=== PATIENT | male | born 1960 | race Caucasian/White ===

== ENCOUNTER → 2017-09-06 | Day surgery (SDC) | payer BC ==
[~2017-09-06] MED LIST: ALBUTEROL0.63 MG/3 INH; FENTANYL CITRATE/PF 100MCG/2 ML INJ ONE; GABAPENTIN300 MG PO; LABETALOL HCL IV 5 MG/ML 20ML MDV ONE; LIDOCAINE HCL 2% LOCAL INJ 5 ML SDV VIAL INJ ONE; MIDAZOLAM HCL 2 MG/2 ML VIAL ONE; PROAIR HFA INH8.5 GM INH; PROPOFOL IV EMULSION 10 MG/ML 50 ML VIAL ONE; PROTONIX PO; SINGULAIR10 MG PO; SYMBICORT 80-10.2 GM; Z.0.ADVAIR 250-501 E; ZYRTEC10 MG PO
--- NOTE | 2017-09-06 14:28 | Operative Report ---
DATE OF PROCEDURE: September 06, 2017 REFERRING PHYSICIAN: Dr. Heather Onofre PROCEDURE PERFORMED: Colonoscopy and polypectomy. INDICATIONS FOR COLONOSCOPY: Colorectal cancer screening, suboptimal prep on previous colonoscopy. MEDICATION: Patient was done under MAC. Please see anesthesiologist's note. PROCEDURE: With the patient in the left lateral decubitus position, the flexible fiberoptic Olympus colonoscope was inserted into the rectum with ease and advanced all the way to the cecum. One polyp was snared from the cecum. An additional polyp, approximately 1.2 cm in size, sessile, flat, was removed per snare polypectomy. The ascending colon appeared to be within normal limits. One polyp was hot biopsied from the hepatic flexure, and two polyps were hot biopsied from the transverse colon. One polyp was hot biopsied from the descending colon. Five polyps were hot biopsied and 2 polyps were snared from the sigmoid colon. Diverticular disease was noted to involve the sigmoid colon. The rectum appeared to be within normal limits. The scope was then retroflexed into the distal rectum, and small internal hemorrhoids were noted, none of which was actively bleeding. The scope was then straightened out. The rectosigmoid area as well as the distal rectal area were decompressed. The scope was subsequently withdrawn. Patient tolerated the procedure well. IMPRESSION 1. Cecal polyps times 2, snared. 2. Hepatic flexure polyp, hot biopsied times 1. 3. Transverse colon polyps times 2, hot biopsied. 4. Descending colon polyp times 1, hot biopsied. 5. Sigmoid colon polyps times 7, two snared and five hot biopsied. 6. Diverticulosis. 7. Internal hemorrhoids, none actively bleeding. PLAN: Follow up histology. Initiate high-fiber, low-fat diet. Initiate high-fiber supplement. Patient will need a followup colonoscopy in 1 year. Job#: [id number] cc:HEATHER ONOFRE MD
== END | disposition home or self-care (01) ==
LOC: OR 10:26
PROVIDERS: ATTEND Internal Medicine Gastroenterology
DX: Z12.11 Encounter for screening for malignant neoplasm of colon (principal); D12.0 Benign neoplasm of cecum; D12.3 Benign neoplasm of transverse colon; D12.5 Benign neoplasm of sigmoid colon; K21.9 Gastro-esophageal reflux disease without esophagitis; J45.909 Unspecified asthma, uncomplicated; G47.33 Obstructive sleep apnea (adult) (pediatric); K57.30 Diverticulosis of large intestine without perforation or abscess without bleeding; K64.8 Other hemorrhoids; Z68.35 Body mass index [BMI] 35.0-35.9, adult; Z80.0 Family history of malignant neoplasm of digestive organs
CPT/HCPCS: 45384; 45385; J2001; J2250; J3490

== ENCOUNTER 2018-10-31 17:42 | Emergency (ER) | payer BC ==
[~2018-10-31] VITALS: Ht 175.3 cm; Wt 104.3 kg
[~2018-10-31 17:42] MED LIST changes: -FENTANYL CITRATE/PF 100MCG/2 ML INJ ONE; -LABETALOL HCL IV 5 MG/ML 20ML MDV ONE; -LIDOCAINE HCL 2% LOCAL INJ 5 ML SDV VIAL INJ ONE; -MIDAZOLAM HCL 2 MG/2 ML VIAL ONE; -PROPOFOL IV EMULSION 10 MG/ML 50 ML VIAL ONE
--- OUTSIDE RECORDS SUMMARY | 2018-10-31 17:47 | XMS REPORT | Summary of Care ---
Author Organization Unknown Address Unknown Phone Unavailable Encounter HQ Gaetanontr_regino(LOPEZ) [id number] Date(s): 06/26/14 - 06/26/14 [facility] [id number] Final: Closed Fracture of One Rib Discharge Disposition: Home Physician Attending: Lazaro Darby MD Reason for Visit XRAY Problem List No data available for this section Allergies, Adverse Reactions, Alerts No data available for this section Medications No data available for this section Medications Administered During Your Visit No data available for this section Immunizations No data available for this section
--- OUTSIDE RECORDS SUMMARY | 2018-10-31 17:47 | XMS REPORT | Summary of Care ---
Author Author [facility] Organization [facility] Address Unknown Phone Unavailable Encounter HQ Belinda(LOPEZ) [id number] Date(s): 04/20/16 - 04/22/16 [facility] [id number] [place] [address]- Discharge Disposition: Home or Self Care Attending Physician: Hilario Barakat MD Admitting Physician: Hilario Barakat MD Vital Signs 1 2 3 Most recent to oldest [Reference Range]: 175.26 cm (04/20/16 8:10 PM) 175.26 cm (04/20/16 8:08 PM) 175.26 cm (04/20/16 8:07 PM) Height 98.0 DegF (04/22/16 12:14 PM) 97.7 DegF (04/22/16 8:15 AM) 98.1 DegF (04/22/16 4:00 AM) Temperature Oral [96.4-99.1 DegF] 138/76 mmHg (04/22/16 12:14 PM) 146/91 mmHg *HI* (04/22/16 8:15 AM) 136/76 mmHg (04/22/16 4:00 AM) Blood Pressure [90-140/60-90 mmHg] 16 BRMIN (04/22/16 12:14 PM) 15 BRMIN (04/22/16 8:28 AM) 16 BRMIN (04/22/16 8:15 AM) Respiratory Rate [14-20 BRMIN] 118 bpm *HI* (04/22/16 12:14 PM) 84 bpm (04/22/16 8:15 AM) 82 bpm (04/22/16 4:00 AM) Peripheral Pulse Rate [60-100 bpm] 95.455 kg (04/20/16 8:10 PM) 95.455 kg (04/20/16 8:08 PM) 95.455 kg (04/20/16 8:07 PM) Weight 31.08 m2 (04/20/16 8:10 PM) 31.08 m2 (04/20/16 8:08 PM) 31.08 m2 (04/20/16 8:07 PM) Body Mass Index Problem List Condition Effective Dates Status Health Status Informant Asthma(Confirmed) Resolved Cough(Confirmed) Resolved Allergies, Adverse Reactions, Alerts Substance Reaction Severity Status penicillins Active Medications azithromycin 500 mg oral tablet 500 mg, 2 tab, Route: PO, Drug form: TAB, [id number], Dosing Weight 95.455, kg, Sta rt date: 04/20/16 21:00:00 CDT, Duration: 3 day, Stop date: 04/22/16 21:00:00 CD T Notes: Take 1 hour before or 2 hours after meals.(Same As: Zithromax) Start Date: 04/20/16 Stop Date: 04/22/16 Status: Discontinued benzonatate 100 mg oral capsule 200 mg=2 cap, PO, TID, # 180 cap, 1 Refill(s) Start Date: 04/22/16 Stop Date: 05/23/16 Status: Ordered codeine-guaiFENesin 10 mg-200 mg/5 mL oral liquid 5 ml, Route: PO, Drug Form: LIQ, Dosing Weight 95.455, kg, Q6H, PRN Cough, Start date: 04/20/16 22:29:00 CDT, Duration: 30 day, Stop date: 05/20/16 22:28:00 CDT Notes: (Same As: Esesin AC) Start Date: 04/20/16 Stop Date: 04/22/16 Status: Discontinued Dulera 100 mcg-5 mcg/inh inhalation aerosol 2 puff, INHALER, BID, # 1 ea, 3 Refill(s) Start Date: 04/21/16 Status: Ordered DuoNeb inhalation solution 3 mL, Route: NEB, Drug Form: SOLN, Dosing Weight 95.455, kg, RQ4H, PRN Cough/Con gestion, Start date: 04/20/16 20:22:00 CDT, Duration: 30 day, Stop date: 6 20:21:00 CDT Notes: (Same as: Duoneb) Start Date: 04/20/16 Stop Date: 04/22/16 Status: Discontinued DuoNeb inhalation solution 3 mL, Route: NEB, Drug Form: SOLN, Dosing Weight 95.455, kg, RQID, Start date: 0 04/21/16 7:00:00 CDT, Duration: 30 day, Stop date: 05/20/16 19:00:00 CDT Notes: (Same as: Duoneb) Start Date: 04/21/16 Stop Date: 04/22/16 Status: Discontinued DuoNeb inhalation solution 3 mL, Route: NEB, Dosing Weight 95.455, kg, QID, Start date: 04/20/16 21:00:00 C DT, Duration: 30 day, Stop date: 05/20/16 17:00:00 CDT Start Date: 04/20/16 Stop Date: 04/20/16 Status: Canceled enoxaparin 40 mg, 0.4 mL, Route: SUB-Q, Drug form: INJ, [id number], Dosing Weight 95.455, kg, Start date: 04/20/16 23:00:00 CDT, Duration: 30 day, Stop date: 05/19/16 23:00: 00 CDT Notes: (Same as: Lovenox) Start Date: 04/20/16 Stop Date: 04/22/16 Status: Discontinued gabapentin 300 mg oral capsule 300 mg=1 cap, PO, Daily, # 90 cap, 0 Refill(s) Start Date: 04/22/16 Status: Ordered lidocaine topical patch (5% film) 1 patch, Route: TOP, Q24H, Drug form: FILM, Start date: 04/21/16 14:21:00 CDT, D uration: 30 day, Stop date: 05/20/16 14:21:00 CDT Notes: Apply only once for up to 12 hours in f66-anrt period (12 hours on and 12 hours off).(Same as: Lidoderm)"Remove old patch before application of new patch" Start Date: 04/21/16 Stop Date: 04/22/16 Status: Discontinued Medrol Dosepak 4 mg oral tablet See Instructions, PO, Take by mouth as directed on label., X 6 day, # 1 Pack, 0 Refill(s) Start Date: 04/22/16 Stop Date: 04/28/16 Status: Ordered montelukast 10 mg, 1 tab, Route: PO, Drug form: TAB, Bedtime, Dosing Weight 95.455, kg, Star t date: 04/20/16 22:50:00 CDT, Duration: 30 day, Stop date: 05/20/16 21:00:00 CD T Notes: (Same as:Singulair) Start Date: 04/20/16 Stop Date: 04/22/16 Status: Discontinued montelukast 10 mg oral tablet 10 mg=1 tab, PO, Bedtime, # 30 tab, 0 Refill(s) Start Date: 04/21/16 Status: Ordered Nasonex 50 mcg/inh nasal spray 2 spray, NASAL, Daily, In each nostril, # 17 gm, 1 Refill(s) Start Date: 04/22/16 Status: Ordered NS (Bolus) IV 500 mL, 500 ml/hr, Infuse Over: 1 hr, Route: IV, 500, Drug form: INJ, ONCE, Prio rity: STAT, Dosing Weight 95.455 kg, Start date: 04/21/16 14:35:00 CDT, Duration : 1 doses or times, Stop date: 04/21/16 14:35:00 CDT Start Date: 04/21/16 Stop Date: 04/21/16 Status: Completed NS (Bolus) IV 500 mL, 500 ml/hr, Infuse Over: 1 hr, Route: IV, 500, Drug form: INJ, ONCE, Prio rity: Routine, Dosing Weight 95.455 kg, Start date: 04/21/16 16:00:00 CDT, Durat ion: 1 doses or times, Stop date: 04/21/16 16:00:00 CDT Start Date: 04/21/16 Stop Date: 04/21/16 Status: Completed pneumococcal 23-valent vaccine 0.5 mL, Route: IM, Drug Form: INJ, Daily, Start date: 04/21/16 9:00:00 CDT, Dura tion: 1 doses or times, Stop date: 04/21/16 9:00:00 CDT Notes: (Same as: Pneumovax 23) Refrigerate Start Date: 04/21/16 Stop Date: 04/21/16 Status: Completed potassium chloride 40 mEq, 2 tab, Route: PO, Drug form: ERTAB, ONCE, Dosing Weight 95.455, kg, Star t date: 04/20/16 22:30:00 CDT, Stop date: 04/20/16 22:30:00 CDT Notes: (Same as: K-Dur 20)"Do Not Crush" With food and full glass of water Start Date: 04/20/16 Stop Date: 04/20/16 Status: Completed predniSONE 10 mg oral tablet 10 mg=1 tab, PO, Daily, # 30 tab, 3 Refill(s) Start Date: 04/21/16 Stop Date: 04/22/16 Status: Discontinued Protonix 40 mg, 1 tab, Route: PO, Drug form: ECTAB, Before Dinner, Dosing Weight 95.455, kg, Start date: 04/21/16 16:30:00 CDT, Duration: 30 day, Stop date: 05/20/16 16: 30:00 CDT Notes: Tablet should not be chewed or crushed.(Same as: Protonix) Start Date: 04/21/16 Stop Date: 04/22/16 Status: Discontinued Protonix 20 mg oral enteric coated tablet 40 mg=2 tab, PO, Daily, # 60 tab, 0 Refill(s) Start Date: 04/21/16 Status: Ordered remove patch 1 patch, Route: TOP, Daily, Drug form: ERFILM, Start date: 04/22/16 3:00:00 CDT, Duration: 30 day, Stop date: 05/21/16 3:00:00 CDT Notes: Remove patch 12 hours after application each day. Start Date: 04/22/16 Stop Date: 04/22/16 Status: Discontinued Rocephin + sodium chloride 0.9% INJ 100 mL 2 gm, Route: IV, [id number], Dosing Weight 95.455, kg, Start date: 04/20/16 21:00:0 0 CDT, Duration: 30 day, Stop date: 05/19/16 21:00:00 CDT Notes: (Same As: Rocephin).Use with 100 mL NS and infuse over 30 min MEDICA TION WASTE Product Size: 2000 mgProduct Wasted: ___ mg Start Date: 04/20/16 Stop Date: 04/22/16 Status: Discontinued Solu-MEDROL 40 mg, 1 mL, Route: IVP, Drug form: INJ, Q12H, Dosing Weight 95.455, kg, Start d ate: 04/20/16 22:30:00 CDT, Duration: 30 day, Stop date: 05/20/16 21:00:00 CDT Notes: (Same as:Solu-MEDROL, A-Methapred) Start Date: 04/20/16 Stop Date: 04/22/16 Status: Discontinued Symbicort 160/4.5 inhalation aerosol with adapter 2 inhalation, Route: INHALATION, Drug Form: AERO/A, Dosing Weight 95.455, kg, RQ 12H, Start date: 04/20/16 22:45:00 CDT, Duration: 30 day, Stop date: 05/20/16 16 :00:00 CDT Notes: (Same as: Symbicort)WASTE: Aerosol - Return to Pharmacy Start Date: 04/20/16 Stop Date: 04/22/16 Status: Discontinued Tessalon Perles 200 mg, 2 cap, Route: PO, Drug form: CAP, TID, Dosing Weight 95.455, kg, Start d ate: 04/20/16 22:31:00 CDT, Duration: 30 day, Stop date: 05/20/16 17:00:00 CDT Notes: (Same As: Tessalon Perles)"Do Not Crush" Start Date: 04/20/16 Stop Date: 04/22/16 Status: Discontinued Tessalon Perles 200 mg, Route: PO, Drug form: CAP, TID, Dosing Weight 95.455, kg, Start date: 9:00:00 CDT, Duration: 30 day, Stop date: 05/20/16 17:00:00 CDT Start Date: 04/21/16 Stop Date: 04/20/16 Status: Canceled Tylenol 500 mg, 1 tab, Route: PO, Drug form: TAB, Q6H, Dosing Weight 95.455, kg, PRN Jessica n Score 1-5, Start date: 04/20/16 20:21:00 CDT, Duration: 30 day, Stop date: 20:20:00 CDT Notes: Max acetaminophen 4000 mg/day (4 gm/day). (Same as: Tylenol Extra Streng th) Start Date: 04/20/16 Stop Date: 04/22/16 Status: Discontinued Results ELECTROLYTES Most recent to 1 2 oldest [Reference Range]: Sodium Lvl [135-145 140 mEq/L 139 mEq/L mEq/L] (04/22/16 5:05 AM) (04/20/16 9:38 PM) Potassium Lvl 4.8 mEq/L 3.5 mEq/L [3.5-5.1 mEq/L] (04/22/16 5:05 AM) (04/20/16 9:38 PM) Chloride Lvl [95-109 107 mEq/L 105 mEq/L mEq/L] (04/22/16 5:05 AM) (04/20/16 9:38 PM) CO2 [24-32 mEq/L] 24 mEq/L 26 mEq/L (04/22/16 5:05 AM) (04/20/16 9:38 PM) AGAP [10.0-20.0 13.8 mEq/L 11.5 mEq/L mEq/L] (04/22/16 5:05 AM) (04/20/16 9:38 PM) CHEM PANEL Most recent to 1 2 oldest [Reference Range]: Creatinine Lvl 1.17 mg/dL 1.29 mg/dL [0.50-1.40 mg/dL] (04/22/16 5:05 AM) (04/20/16 9:38 PM) eGFR 70 mL/min/1.73m2 1 62 mL/min/1.73m2 2 *NA* *NA* (04/22/16 5:05 AM) (04/20/16 9:38 PM) BUN [7-22 mg/dL] 17 mg/dL 18 mg/dL (04/22/16 5:05 AM) (04/20/16 9:38 PM) B/C Ratio [6-25] 14 (04/20/16 9:38 PM) Glucose Lvl [70-99 177 mg/dL 97 mg/dL mg/dL] *HI* (04/20/16 9:38 PM) (04/22/16 5:05 AM) Total Protein 6.7 g/dL [6.4-8.4 g/dL] (04/20/16 9:38 PM) Albumin Lvl [3.5-5.0 3.4 g/dL g/dL] *LOW* (04/20/16 9:38 PM) Globulin [2.0-4.0 3.3 g/dL g/dL] (04/20/16 9:38 PM) A/G Ratio [0.7-1.6] 1.0 (04/20/16 9:38 PM) Calcium Lvl 8.5 mg/dL 7.7 mg/dL [8.5-10.5 mg/dL] (04/22/16 5:05 AM) *LOW* (04/20/16 9:38 PM) ALT [0-65 unit/L] 47 unit/L (04/20/16 9:38 PM) AST [0-37 unit/L] 26 unit/L (04/20/16 9:38 PM) Alk Phos [39-136 92 unit/L unit/L] (04/20/16 9:38 PM) Bili Total [0.2-1.3 0.3 mg/dL mg/dL] (04/20/16 9:38 PM) 1Result Comment: The eGFR is calculated using the CKD-EPI formula. In most young, healthy individuals the eGFR will be >90 mL/min/1.73m2. The eGFR declines with age. An eGFR of 60-89 may be normal in some populations, particularly the elderly, for whom the CKD-EPI formula has not been extensively validated. Use of the eGFR is not recommended in the following populations: Individuals with unstable creatinine concentrations, including patients and those with serious co-morbid conditions. Patients with extremes in muscle mass or diet. The data above are obtained from the National Kidney Disease Education Program ( NKDEP) which additionally recommends that when the eGFR is used in patients with extremes of body mass index for purposes of drug dosing, the eGFR should be mul tiplied by the estimated BMI. 2Result Comment: The eGFR is calculated using the CKD-EPI formula. In most young, healthy individuals the eGFR will be >90 mL/min/1.73m2. The eGFR declines with age. An eGFR of 60-89 may be normal in some populations, particularly the elderly, for whom the CKD-EPI formula has not been extensively validated. Use of the eGFR is not recommended in the following populations: Individuals with unstable creatinine concentrations, including patients and those with serious co-morbid conditions. Patients with extremes in muscle mass or diet. The data above are obtained from the National Kidney Disease Education Program ( NKDEP) which additionally recommends that when the eGFR is used in patients with extremes of body mass index for purposes of drug dosing, the eGFR should be mul tiplied by the estimated BMI. HEMATOLOGY Most recent to 1 2 oldest [Reference Range]: WBC [3.7-10.4 K/CMM] 22.4 K/CMM 12.6 K/CMM *HI* *HI* (04/22/16 5:05 AM) (04/20/16 9:38 PM) RBC [4.70-6.10 5.05 M/CMM 5.29 M/CMM M/CMM] (04/22/16 5:05 AM) (04/20/16 9:38 PM) Hgb [14.0-18.0 g/dL] 14.3 g/dL 15.3 g/dL (04/22/16 5:05 AM) (04/20/16 9:38 PM) Hct [42.0-54.0 %] 45.3 % 46.7 % (04/22/16 5:05 AM) (04/20/16 9:38 PM) MCV [80.0-94.0 fL] 89.6 fL 88.3 fL (04/22/16 5:05 AM) (04/20/16 9:38 PM) MCH [27.0-31.0 pg] 28.3 pg 29.0 pg (04/22/16 5:05 AM) (04/20/16 9:38 PM) MCHC [32.0-36.0 31.6 g/dL 32.8 g/dL g/dL] *LOW* (04/20/16 9:38 PM) (04/22/16 5:05 AM) RDW [11.5-14.5 %] 14.0 % 13.7 % (04/22/16 5:05 AM) (04/20/16 9:38 PM) Platelet [133-450 224 K/CMM 232 K/CMM K/CMM] (04/22/16 5:05 AM) (04/20/16 9:38 PM) MPV [7.4-10.4 fL] 9.2 fL 9.3 fL (04/22/16 5:05 AM) (04/20/16 9:38 PM) Segs [45.0-75.0 %] 95.2 % 59.7 % *HI* (04/20/16 9:38 PM) (04/22/16 5:05 AM) Lymphocytes 2.3 % 29.5 % [20.0-40.0 %] *LOW* (04/20/16 9:38 PM) (04/22/16 5:05 AM) Monocytes [2.0-12.0 1.8 % 8.5 % %] *LOW* (04/20/16 9:38 PM) (04/22/16 5:05 AM) Eosinophils [0.0-4.0 0.1 % 1.0 % %] (04/22/16 5:05 AM) (04/20/16 9:38 PM) Basophils [0.0-1.0 0.6 % 1.3 % %] (04/22/16 5:05 AM) *HI* (04/20/16 9:38 PM) Segs-Bands # 21.3 K/CMM 7.5 K/CMM [1.5-8.1 K/CMM] *HI* (04/20/16 9:38 PM) (04/22/16 5:05 AM) Lymphocytes # 0.5 K/CMM 3.7 K/CMM [1.0-5.5 K/CMM] *LOW* (04/20/16 9:38 PM) (04/22/16 5:05 AM) Monocytes # [0.0-0.8 0.4 K/CMM 1.1 K/CMM K/CMM] (04/22/16 5:05 AM) *HI* (04/20/16 9:38 PM) Eosinophils # 0.1 K/CMM [0.0-0.5 K/CMM] (04/20/16 9:38 PM) Basophils # [0.0-0.2 0.1 K/CMM 0.2 K/CMM K/CMM] (04/22/16 5:05 AM) (04/20/16 9:38 PM) Immunizations Given and Recorded Vaccine Date Status Refusal Reason pneumococcal 23-valent vaccine 04/21/16 Given Procedures Procedure Date Related Diagnosis Body Site Repair of inguinal hernia Repair of umbilical hernia Social History Social History Type Response Substance Abuse Use: None. Alcohol Current, Type Beer, Wine. Frequency: 1-2 times per month. Smoking Status Former smoker; Type: Cigarettes; Exposure to Tobacco Smoke None; Cigarette Smoking Last 365 Days No; Reg Smoking Cessation Counseling No Assessment and Plan Extracted from: Title: DC Author: Demar Allison Date: 04/22/16 Blair HUTCHINS DATE OF ADMISSION: 04/20/2016 DATE OF DISCHARGE: 04/22/2016 DISCHARGE DIAGNOSES: 1. Acute asthma exacerbation 2. Chronic cough SERVICE: Internal Medicine/Pulmonary ATTENDING AT DISCHARGE: Dr. Demar Allison PROCEDURES: None CONSULTS: None HOSPITAL COURSE: Mr. Cohen is a 55 year old man with a history of adult- onset asthma who was admitted for persistent severe cough and concern for pneumonia. He was started on antibiotic therapy, bronchodilators, steroids, and antitussives. Chest film was concerning for a pulmonary nodule, but CT chest showed no nodules and clear lung parenchyma. His dyspnea improved although his cough remained, although somewhat improved. He was discharged with prescriptions for a Medrol dose pack, antitussives, and gabapentin which we will try as an adjunct therapy for chronic cough. I cautioned him on the potential for gabapentin to cause sedation particularly when first started. EXAMINATION AT DISCHARGE: VitalsTmp(F)Tmp(C)[id number] 04/22 12:[id number]/76---[id number]------ 04/22 08:28 1597------ 04/22 08:1597.736.39zmop692/91---[id number]------ 04/22 04:0098.136.10aukx154/76---[id number]--------- General: Sitting up in bed, in no distress, appears comfortable Heart: Regular rate and rhythm, S1 and S2 heard, no murmurs, radial and dorsalis pedis pulses palpable Lungs: Clear to auscultation bilaterally, normal work of breathing Abdomen: Soft, nondistended, bowel sounds normoactive Extremities: No edema in legs, hands and feet are warm Skin: No rashes, no bruises Neurologic: Awake, alert, speech fluent DISPOSITION: Discharged home CONDITION: Good DISCHARGE MEDICATIONS: See home medication reconciliation form PATIENT INSTRUCTIONS: Patient was instructed to return to the [facility] or call PCP for FOLLOWUP: With myself or Dr. Ortiz in clinic in 2-3 weeks Demar Allison MD #[id number] Pulmonary/Critical Care Medicine [facility] Addendum Patient was instructed to return to the EC or call PCP for shortness of breath by Demar Carson MD on 04/22/2016 12:41 Extracted from: Title: PCCM Author: Demar Allison Date: 04/21/16 Blair HUTCHINS [facility] Pulmonary/Critical Care Progress Note History of Present Illness Mr. Cohen is a 55 year old man with a history of asthma who was admitted 04/20/16 for asthma exacerbation and possible pneumonia. He continues to have a significant cough, feels his breathing is a little better today than yesterday. His chest is sore when he coughs. Review of systems Constitutional: no fever or chills Respiratory: has severe cough, mild shortness of breath Cardiovascular: no chest pain or palpitations GI: no vomiting or diarrhea Allergies (1) ActiveReaction penicillinsNone Documented Vital Signs (last 24 hrs) Last Charted Temp Oral97.9 DegF (APR 21:19) Heart Rate PeripheralH 109bpm (APR 21:) Resp Rate 18 BRMIN (APR 21:) QDR328 mmHg (APR 21:) DBP81 mmHg (APR 21:) UrT838 % (APR 21:19) Jarlml77.455 kg (APR 20 20:10) Sxuzwy069.26 cm (APR 20 20:10) BMI31.08 (APR 20:10) Physical examination General: Lying in bed with head of bed at 30 degrees, in no distress, appears comfortable Heart: Regular rate and rhythm, S1 and S2 heard Lungs: Slight end expiratory wheezing in upper lung ramirez, normal work of breathing Abdomen: Soft, nondistended, bowel sounds normoactive Extremities: No edema in legs, hands and feet are warm Skin: No rashes, no bruises Neurologic: Awake/alert, speech fluent Labs (Last four charted values) WBC H 12.6(APR 20) Hgb 15.3(APR 20) Hct 46.7(APR 20) Plt 232(APR 20) Na 139(APR 20) K 3.5(APR 20) CO2 26(APR 20) Cl 105(APR 20) Cr 1.29(APR 20) BUN 18(APR 20) Glucose Random 97(APR 20) Ca L 7.7(APR 20) Imaging/Studies AP Chest film from yesterday shows clear lung ramirez apart from a nodules in the right lung seen on previous films, possibly a little larger in size, about 1cm Impression 1. Asthma with subacute exacerbation 2. Pulmonary nodule 3. Cough 4. Left chest wall pain Plan/Recommendations 1. Continue Solumedrol 40mg q12h, scheduled Duonebs, Symbicort 160/4.5, montelukast for asthma 2. Tessalon scheduled with codeine-guaifenesin PRN for cough 3. CT chest with contrast to evaluate pulmonary nodule and dyspnea further. Will give 250mL saline bolus before and after contrast to help reduce risk of renal injury. 4. Pantoprazole for possible GERD component to cough 5. No evidence for pneumonia on chest film, possibly stop ceftriaxone based on CT results. Azithromycin to 3 days for possible bronchitis component. 6. Enoxaparin for DVT prophylaxis 7. Lidocaine patch for left chest muscular pain 8. Anticipate discharge tomorrow pending clinical improvement Demar Allison MD #[id number] Pulmonary/Critical Care Medicine [facility] Extracted from: Title: PCCM Author: Demar Allison Date: 04/20/16 Blair HUTCHINS [facility] History and Physical Chief Complaint: cough and wheezing History of Present Illness Mr. Cohen is a 55 year old man with a history of adult-onset asthma who presents with complaint of wheezing, shortness of breath, and cough which has been going on for the past 4 months. He has been treated with several different regimens in the outpatient setting including using Advair 500/50, albuterol, Singulair, Nasonex, oral prednisone, multiple antibiotics without significant help. The cough has not worsened but has not improved. His cough is so severe at times that he has fractured ribs. He has never been hospitalized before for his breathing and has been generally healthy otherwise. He does not know of any specific triggers for his asthma. He has dogs at home, no cats or birds, no farm animals. He smoked in the past but quit in 2004, is occasionally around other people smoking. 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 The cough is nonproductive although he feels congested in the chest. He has not been tested for sleep apnea, but he does snore heavily at night. He does not know if he stops breathing at night. REVIEW OF SYSTEMS: Constitutional: No weight changes, has subjective fever and night sweats Head: No headaches, no head trauma Eyes: No vision changes, no spots in vision Mouth/throat: No dry mouth, no difficulty swallowing Cardiovascular: Has chest pain with coughing, no palpitations Pulmonary: Has nonproductive cough, no hemoptysis Gastrointestinal: No diarrhea, no vomiting Genitourinary: No dysuria, no blood in urine Musculoskeletal: No joint swelling, no joint redness Hematologic: No prolonged bleeding, no easy bruising Psychiatric: No depression, no anxiety Dermatologic: No rash, no color change in hands Past Medical History 1. Asthma Past Surgical History Umbilical hernia repair Family History Son has asthma Social History Smoked about 1 pack daily for 20 years, quit 10 years ago. No recent travel. No exposure to birds. Allergies (1) ActiveReaction penicillinsNone Documented Vital Signs (last 24 hrs) Last Charted Temp Oral98.2 DegF (APR 20:) Heart Rate Qhrzyypsln66 bpm (APR 20:) Resp Rate 18 BRMIN (APR 20:08) AKU518 mmHg (APR 20:00) DBP83 mmHg (APR 20:00) UvT728 % (APR 20:50) Waxjcy74.455 kg (APR 20:10) Entxbp814.26 cm (APR 20:10) BMI31.08 (APR 20:) Physical examination General: Lying in bed with head of bed at 30 degrees, in no distress, appears comfortable, coughing occasionally with a brassy cough Eyes: Sclera anicteric, conjunctiva pink ENT: Neck supple, tongue moist, no jugular venous distention Heart: Regular rate and rhythm, S1 and S2 heard, no murmurs, radial and dorsalis pedis pulses palpable Lungs: End expiratory wheezing bilaterally in all lung ramirez, no rales or rhonchi, good air movement, normal work of breathing Abdomen: Soft, nondistended, bowel sounds normoactive Extremities: No edema in legs, hands and feet are warm Skin: No rashes, no bruises Neurologic: Awake/alert, speech fluent, pupils equally round and reactive to light I/O Intake OutputBalance 04/20/2016 7a-3p 0.00 0.00 0.00 3p-11p 100.00 0.00 100.00 11p-7a 0.00 0.00 0.00 Totals 100.00 0.00 100.00 As of 22:34 Labs (Last four charted values) WBC H 12.6(APR 20) Hgb 15.3(APR 20) Hct 46.7(APR 20) Plt 232(APR 20) Na 139(APR 20) K 3.5(APR 20) CO2 26(APR 20) Cl 105(APR 20) Cr 1.29(APR 20) BUN 18(APR 20) Glucose Random 97(APR 20) Ca L 7.7(APR 20) Imaging/Studies Chest film ordered and is pending Problem List 1. Asthma with subacute exacerbation 2. Possible pneumonia 3. Leukocytosis, mild 4. Cough Plan 1. Respiratory culture if able to produce sputum, CBC with mild leukocytosis, no eosinophilia. Ceftriaxone/azithromycin pending chest film results. 2. Symptomatic treatment of cough with codeine-guaifenesin PRN, schedule Tessalon. 3. Treat asthma with scheduled Duonebs, Solumedrol 40mg q12h, Symbicort 160/4.5. 4. Pantoprazole for possible GERD component to cough 5. Enoxaparin for DVT prophylaxis Demar Allison MD #[id number] Pulmonary/Critical Care Medicine [facility]
--- OUTSIDE RECORDS SUMMARY | 2018-10-31 17:47 | XMS REPORT | Continuity of Care Document ---
Author Author [facility] Interface Address Unknown Phone Unavailable Problems Problem Status Onset Date Classification Date Reported Comments Source PNEUMONIA Active 04/20/2016 [facility] Final: Closed Fracture of One Rib 06/29/2014 [facility] Asthma Resolved Problem 04/25/2016 [facility] Cough Resolved Problem 04/25/2016 [facility] XRAY Active [facility] PNEUMONIA, UNSPECIFIED ORGANISM Active [facility] Medications Medication Details Route Status Patient Instructions Ordering Provider Order Date Source 120 ACTUAT mometasone furoate 0.05 MG/ACTUAT Nasal Inhaler [Nasonex] 2 spray, NASAL, Daily, In each nostril, # 17 gm, 1 Refill(s) Active 04/22/2016 [facility] benzonatate 100 mg oral capsule 200 mg=2 cap, PO, TID, # 180 cap, 1 Refill(s) Active 04/22/2016 [facility] {21 (Methylprednisolone 4 MG Oral Tablet [Medrol]) } Pack [Medrol Dosepak] See Instructions, PO, Take by mouth as directed on label., X 6 day, # 1 Pack, 0 Refill(s) Active 04/22/2016 [facility] gabapentin 300 MG Oral Capsule 300 mg=1 cap, PO, Daily, # 90 cap, 0 Refill(s) Active 04/22/2016 [facility] remove patch 1 patch, Route: TOP, Daily, Drug form: ERFILM, Start date: 04/22/16 3:00:00 CDT, Duration: 30 day, Stop date: 05/21/16 3:00:00 CDTNotes: Remove patch 12 hours after application each day. Inactive 04/22/2016 [facility] Protonix 40 mg, 1 tab, Route: PO, Drug form: ECTAB, Before Dinner, Dosing Weight 95.455, kg, Start date: 04/21/16 16:30:00 CDT, Duration: 30 day, Stop date: 05/20/16 16:30:00 CDTNotes: Tablet should not be chewed or crushed. (Same as: Protonix) No Longer Active 04/21/2016 [facility] Sodium Chloride 0.154 MEQ/ML Injectable Solution 500 mL, 500 ml/hr, Infuse Over: 1 hr, Route: IV, 500, Drug form: INJ, ONCE, Priority: Routine, Dosing Weight 95.455 kg, Start date: 04/21/16 16:00:00 CDT, Duration: 1 doses or times, Stop date: 04/21/16 16:00:00 CDT Inactive 04/21/2016 [facility] predniSONE 10 mg oral tablet 10 mg=1 tab, PO, Daily, # 30 tab, 3 Refill(s) No Longer Active 04/21/2016 [facility] montelukast 10 mg oral tablet 10 mg=1 tab, PO, Bedtime, # 30 tab, 0 Refill(s) Active 04/21/2016 [facility] pantoprazole 20 MG Enteric Coated Tablet [Protonix] 40 mg=2 tab, PO, Daily, # 60 tab, 0 Refill(s) Active 04/21/2016 [facility] Dulera 100 mcg-5 mcg/inh inhalation aerosol 2 puff, INHALER, BID, # 1 ea, 3 Refill(s) Active 04/21/2016 [facility] Sodium Chloride 0.154 MEQ/ML Injectable Solution 500 mL, 500 ml/hr, Infuse Over: 1 hr, Route: IV, 500, Drug form: INJ, ONCE, Priority: STAT, Dosing Weight 95.455 kg, Start date: 04/21/16 14:35:00 CDT, Duration: 1 doses or times, Stop date: 04/21/16 14:35:00 CDT Inactive 04/21/2016 [facility] Lidocaine 0.05 MG/MG Transdermal Patch 1 patch, Route: TOP, Q24H, Drug form: FILM, Start date: 04/21/16 14:21:00 CDT, Duration: 30 day, Stop date: 05/20/16 14:21:00 CDTNotes: Apply only once for up to 12 hours in a 24-hour period (12 hours on and 12 hours off). (Same as: Lidoderm) "Remove old patch before application of new patch" No Longer Active 04/21/2016 [facility] Tessalon Perles 200 mg, Route: PO, Drug form: CAP, TID, Dosing Weight 95.455, kg, Start date: 04/21/16 9:00:00 CDT, Duration: 30 day, Stop date: 05/20/16 17:00:00 CDT No Longer Active 04/21/2016 [facility] pneumococcal capsular polysaccharide type 1 vaccine / pneumococcal capsular polysaccharide type 10A vaccine / pneumococcal capsular polysaccharide type 11A vaccine / pneumococcal capsular polysaccharide type 12F vaccine / pneumococcal capsular polysacchar 0.5 mL, Route: IM, Drug Form: INJ, Daily, Start date: 04/21/16 9:00:00 CDT, Duration: 1 doses or times, Stop date: 04/21/16 9:00:00 CDTNotes: (Same as: Pneumovax 23) Refrigerate Inactive 04/21/2016 [facility] Albuterol 0.833 MG/ML / Ipratropium Sharps 0.167 MG/ML Inhalant Solution [DuoNeb] 3 mL, Route: NEB, Drug Form: SOLN, Dosing Weight 95.455, kg, RQID, Start date: 04/21/16 7:00:00 CDT, Duration: 30 day, Stop date: 05/20/16 19:00:00 CDTNotes: (Same as: Duoneb) No Longer Active 04/21/2016 [facility] Enoxaparin 40 mg, 0.4 mL, Route: SUB-Q, Drug form: INJ, [id number], Dosing Weight 95.455, kg, Start date: 04/20/16 23:00:00 CDT, Duration: 30 day, Stop date: 05/19/16 23:00:00 CDTNotes: (Same as: Lovenox) No Longer Active 04/21/2016 [facility] montelukast 10 mg, 1 tab, Route: PO, Drug form: TAB, Bedtime, Dosing Weight 95.455, kg, Start date: 04/20/16 22:50:00 CDT, Duration: 30 day, Stop date: 05/20/16 21:00:00 CDTNotes: (Same as:Singulair) No Longer Active 04/21/2016 [facility] Symbicort 160/4.5 inhalation aerosol with adapter 2 inhalation, Route: INHALATION, Drug Form: AERO/A, Dosing Weight 95.455, kg, RQ12H, Start date: 04/20/16 22:45:00 CDT, Duration: 30 day, Stop date: 05/20/16 16:00:00 CDTNotes: (Same as: Symbicort) WASTE: Aerosol - Return to Pharmacy No Longer Active 04/21/2016 [facility] Tessalon Perles 200 mg, 2 cap, Route: PO, Drug form: CAP, TID, Dosing Weight 95.455, kg, Start date: 04/20/16 22:31:00 CDT, Duration: 30 day, Stop date: 05/20/16 17:00:00 CDTNotes: (Same As: Palomaon Taylor) "Do Not Crush" No Longer Active 04/21/2016 [facility] potassium chloride 40 mEq, 2 tab, Route: PO, Drug form: ERTAB, ONCE, Dosing Weight 95.455, kg, Start date: 04/20/16 22:30:00 CDT, Stop date: 04/20/16 22:30:00 CDTNotes: (Same as: K-Dur 20) "Do Not Crush" With food and full glass of water Inactive 04/21/2016 [facility] Solu-Medrol 40 mg, 1 mL, Route: IVP, Drug form: INJ, Q12H, Dosing Weight 95.455, kg, Start date: 04/20/16 22:30:00 CDT, Duration: 30 day, Stop date: 05/20/16 21:00:00 CDTNotes: (Same as:Solu-MEDROL, A-Methapred) No Longer Active 04/21/2016 [facility] Codeine Phosphate 2 MG/ML / Guaifenesin 40 MG/ML Oral Solution 5 ml, Route: PO, Drug Form: LIQ, Dosing Weight 95.455, kg, Q6H, PRN Cough, Start date: 04/20/16 22:29:00 CDT, Duration: 30 day, Stop date: 05/20/16 22:28:00 CDTNotes: (Same As: Robitussin AC) No Longer Active 04/21/2016 [facility] Rocephin 2 gm, Route: IV, [id number], Dosing Weight 95.455, kg, Start date: 04/20/16 21:00:00 CDT, Duration: 30 day, Stop date: 05/19/16 21:00:00 CDTNotes: (Same As: Rocephin). Use with 100 mL NS and infuse over 30 min MEDICATION WASTE Product Size: 2000 mg Product Wasted: ___ mg No Longer Active 04/21/2016 [facility] azithromycin 500 mg oral tablet 500 mg, 2 tab, Route: PO, Drug form: TAB, [id number], Dosing Weight 95.455, kg, Start date: 04/20/16 21:00:00 CDT, Duration: 3 day, Stop date: 04/22/16 21:00:00 CDTNotes: Take 1 hour before or 2 hours after meals. (Same As: Zithromax) No Longer Active 04/21/2016 [facility] Albuterol 0.833 MG/ML / Ipratropium Sharps 0.167 MG/ML Inhalant Solution [DuoNeb] 3 mL, Route: NEB, Dosing Weight 95.455, kg, QID, Start date: 04/20/16 21:00:00 CDT, Duration: 30 day, Stop date: 05/20/16 17:00:00 CDT Inactive 04/21/2016 [facility] Albuterol 0.833 MG/ML / Ipratropium Sharps 0.167 MG/ML Inhalant Solution [DuoNeb] 3 mL, Route: NEB, Drug Form: SOLN, Dosing Weight 95.455, kg, RQ4H, PRN Cough/Congestion, Start date: 04/20/16 20:22:00 CDT, Duration: 30 day, Stop date: 05/20/16 20:21:00 CDTNotes: (Same as: Duoneb) No Longer Active 04/21/2016 [facility] Tylenol 500 mg, 1 tab, Route: PO, Drug form: TAB, Q6H, Dosing Weight 95.455, kg, PRN Pain Score 1-5, Start date: 04/20/16 20:21:00 CDT, Duration: 30 day, Stop date: 05/20/16 20:20:00 CDTNotes: Max acetaminophen 4000 mg/day (4 gm/day). (Same as: Tylenol Extra Strength) No Longer Active 04/21/2016 [facility] Allergies, Adverse Reactions, Alerts Substance Category Reaction Severity Reaction type Status Date Reported Comments Source penicillins Assertion Drug allergy Active [facility] Immunizations Immunization Date Given Site Status Last Updated Comments Source pneumococcal 23-valent vaccine 04/21/2016 Right Deltoid completed [facility] Results Order Name Results Value Reference Range Date Interpretation Comments Source CHEM PANEL eGFR 70 mL/min/1.73m2 04/22/2016 Result Comment: The eGFR is calculated using the [...] from the National Kidney Disease Education Program (NKDEP) which additionally recommends that when the eGFR is used in patients with extremes of body mass index for purposes of drug dosing, the eGFR should be multiplied by the estimated BMI. [facility] CHEM PANEL Calcium Lvl 8.5 mg/dL 8.5 - 10.5 04/22/2016 [facility] CHEM PANEL CO2 24 meq/L 24 - 32 04/22/2016 [facility] CHEM PANEL Glucose Lvl 177 mg/dL 70 - 99 04/22/2016 [facility] CHEM PANEL Chloride Lvl 107 meq/L 95 - 109 04/22/2016 [facility] CHEM PANEL Potassium Lvl 4.8 meq/L 3.5 - 5.1 04/22/2016 [facility] CHEM PANEL Sodium Lvl 140 meq/L 135 - 145 04/22/2016 [facility] CHEM PANEL Creatinine Lvl 1.17 mg/dL 0.50 - 1.40 04/22/2016 [facility] CHEM PANEL BUN 17 mg/dL 7 - 22 04/22/2016 [facility] CHEM PANEL AGAP 13.8 meq/L 10.0 - 20.0 04/22/2016 [facility] HEMATOLOGY Monocytes 1.8 % 2.0 - 12.0 04/22/2016 [facility] HEMATOLOGY Basophils 0.6 % 0.0 - 1.0 04/22/2016 [facility] HEMATOLOGY Eosinophils 0.1 % 0.0 - 4.0 04/22/2016 [facility] HEMATOLOGY Monocytes # 0.4 K/CMM 0.0 - 0.8 04/22/2016 [facility] HEMATOLOGY Lymphocytes 2.3 % 20.0 - 40.0 04/22/2016 [facility] Segs 95.2 % 45.0 - 75.0 04/22/2016 [facility] Lymphocytes # 0.5 K/CMM 1.0 - 5.5 04/22/2016 [facility] Segs-Bands # 21.3 K/CMM 1.5 - 8.1 04/22/2016 [facility] Basophils # 0.1 K/CMM 0.0 - 0.2 04/22/2016 [facility] MCV 89.6 fL 80.0 - 94.0 04/22/2016 [facility] Hct 45.3 % 42.0 - 54.0 04/22/2016 [facility] Hgb 14.3 g/dL 14.0 - 18.0 04/22/2016 [facility] RBC 5.05 M/CMM 4.70 - 6.10 04/22/2016 [facility] MCH 28.3 pg 27.0 - 31.0 04/22/2016 [facility] MPV 9.2 fL 7.4 - 10.4 04/22/2016 [facility] Platelet 224 K/CMM 133 - 450 04/22/2016 [facility] RDW 14.0 % 11.5 - 14.5 04/22/2016 [facility] MCHC 31.6 g/dL 32.0 - 36.0 04/22/2016 [facility] WBC 22.4 K/CMM 3.7 - 10.4 04/22/2016 [facility] Chest w contrast CT Chest w contrast CT EXAM: CT CHEST WITH CONTRAST DATE: 04/21/2016 2:34 PM CDT INDICATION: Shortness of Breath COMPARISON: None TECHNIQUE: Volumetric CT acquisition of the chest after intravenous contrast. Sagittal and coronal reconstructions are provided. FINDINGS: Lines and tubes: None Lower neck: Visualized portions are unremarkable. Heart: Unremarkable. No pericardial effusion. Vasculature: The main pulmonary artery has normal caliber. The ascending and descending thoracic aorta measure within normal limits. There is no significant atherosclerotic plaque. Lymph Nodes: There is no hilar, mediastinal, axillary, or internal mammary lymphadenopathy. Lungs: The trachea and major bronchi are patent. There are minimal bilateral dependent atelectatic changes. The lungs are otherwise clear. There is no pleural effusion. Upper abdomen: Visualized portions are unremarkable. Bones: No acute abnormality. Soft tissues: Unremarkable. IMPRESSION: No acute abnormality. SL: [id number] 04/21/2016 - - Read by: John Min Dictated Date/time: 04/21/16 18:24 Electronically Signed by: John Min 04/21/16 18:27 FINAL REPORT [facility] CHEM PANEL eGFR 62 mL/min/1.73m2 04/21/2016 Result Comment: The eGFR is calculated using the [...] from the National Kidney Disease Education Program (NKDEP) which additionally recommends that when the eGFR is used in patients with extremes of body mass index for purposes of drug dosing, the eGFR should be multiplied by the estimated BMI. [facility] CHEM PANEL Chloride Lvl 105 meq/L 95 - 109 04/21/2016 [facility] CHEM PANEL Sodium Lvl 139 meq/L 135 - 145 04/21/2016 [facility] CHEM PANEL Glucose Lvl 97 mg/dL 70 - 99 04/21/2016 [facility] CHEM PANEL Creatinine Lvl 1.29 mg/dL 0.50 - 1.40 04/21/2016 [facility] CHEM PANEL BUN 18 mg/dL 7 - 22 04/21/2016 [facility] CHEM PANEL Potassium Lvl 3.5 meq/L 3.5 - 5.1 04/21/2016 [facility] CHEM PANEL Alk Phos 92 unit/L 39 - 136 04/21/2016 [facility] CHEM PANEL AST 26 unit/L 0 - 37 04/21/2016 [facility] CHEM PANEL Bili Total 0.3 mg/dL 0.2 - 1.3 04/21/2016 [facility] CHEM PANEL Total Protein 6.7 g/dL 6.4 - 8.4 04/21/2016 [facility] CHEM PANEL Calcium Lvl 7.7 mg/dL 8.5 - 10.5 04/21/2016 [facility] CHEM PANEL ALT 47 unit/L 0 - 65 04/21/2016 [facility] CHEM PANEL Albumin Lvl 3.4 g/dL 3.5 - 5.0 04/21/2016 [facility] CHEM PANEL CO2 26 meq/L 24 - 32 04/21/2016 [facility] CHEM PANEL Globulin 3.3 g/dL 2.0 - 4.0 04/21/2016 [facility] CHEM PANEL A/G Ratio 1.0 0.7 - 1.6 04/21/2016 [facility] CHEM PANEL B/C Ratio 14 6 - 25 04/21/2016 [facility] CHEM PANEL AGAP 11.5 meq/L 10.0 - 20.0 04/21/2016 [facility] HEMATOLOGY Hct 46.7 % 42.0 - 54.0 04/21/2016 [facility] HEMATOLOGY MCHC 32.8 g/dL 32.0 - 36.0 04/21/2016 [facility] HEMATOLOGY MCV 88.3 fL 80.0 - 94.0 04/21/2016 [facility] MCH 29.0 pg 27.0 - 31.0 04/21/2016 [facility] HEMATOLOGY RDW 13.7 % 11.5 - 14.5 04/21/2016 [facility] HEMATOLOGY MPV 9.3 fL 7.4 - 10.4 04/21/2016 [facility] HEMATOLOGY Platelet 232 K/CMM 133 - 450 04/21/2016 [facility] HEMATOLOGY Hgb 15.3 g/dL 14.0 - 18.0 04/21/2016 [facility] HEMATOLOGY WBC 12.6 K/CMM 3.7 - 10.4 04/21/2016 [facility] RBC 5.29 M/CMM 4.70 - 6.10 04/21/2016 [facility] HEMATOLOGY Monocytes 8.5 % 2.0 - 12.0 04/21/2016 [facility] HEMATOLOGY Lymphocytes 29.5 % 20.0 - 40.0 04/21/2016 [facility] HEMATOLOGY Eosinophils # 0.1 K/CMM 0.0 - 0.5 04/21/2016 [facility] HEMATOLOGY Monocytes # 1.1 K/CMM 0.0 - 0.8 04/21/2016 [facility] HEMATOLOGY Lymphocytes # 3.7 K/CMM 1.0 - 5.5 04/21/2016 [facility] HEMATOLOGY Segs-Bands # 7.5 K/CMM 1.5 - 8.1 04/21/2016 [facility] HEMATOLOGY Segs 59.7 % 45.0 - 75.0 04/21/2016 [facility] HEMATOLOGY Eosinophils 1.0 % 0.0 - 4.0 04/21/2016 [facility] HEMATOLOGY Basophils 1.3 % 0.0 - 1.0 04/21/2016 [facility] HEMATOLOGY Basophils # 0.2 K/CMM 0.0 - 0.2 04/21/2016 [facility] Chest 2 views DX Chest 2 views DX PA and lateral chest: The cardiomediastinal silhouette, pulmonary vasculature and antelmo are within normal limits. A small nodule in the right middle lobe is noted, increasing in size compared to radiographs dating back to 05/23/2013, now measuring approximately 1.0 cm in size. Mild bilateral pleural thickening is again seen and unchanged. The lungs and pleural spaces are otherwise clear. There are no significant osseous abnormalities. IMPRESSION: Slight increase in size in the small right middle lobe lung nodule compared to previous radiographs. There is no other acute radiographic abnormality in the chest. KEYANA DLAWRENCE- 04/20/2016 - - Read by: Tom Burrell MD Dictated Date/time: 04/21/16 06:42 Electronically Signed by: Tom Burrell MD 04/21/16 06:46 FINAL REPORT [facility] Vital Signs Vital Sign Value Date Comments Source Temperature Oral (F) 98.0 F 04/22/2016 [facility] Systolic (mm Hg) 138 04/22/2016 [facility] Diastolic (mm Hg) 76 04/22/2016 [facility] Respitory Rate 16 04/22/2016 [facility] Heart Rate 118 04/22/2016 [facility] Respitory Rate 15 04/22/2016 [facility] Temperature Oral (F) 97.7 F 04/22/2016 [facility] Heart Rate 84 04/22/2016 [facility] Respitory Rate 16 04/22/2016 [facility] Systolic (mm Hg) 146 04/22/2016 [facility] Diastolic (mm Hg) 91 04/22/2016 [facility] Heart Rate 82 04/22/2016 [facility] Temperature Oral (F) 98.1 F 04/22/2016 [facility] Systolic (mm Hg) 136 04/22/2016 [facility] Diastolic (mm Hg) 76 04/22/2016 [facility] Height 175.26 cm 04/21/2016 [facility] BMI Calculated 31.08 04/21/2016 [facility] Weight 95.455 04/21/2016 [facility] BMI Calculated 31.08 04/21/2016 [facility] Weight 95.455 04/21/2016 [facility] Height 175.26 cm 04/21/2016 [facility] Height 175.26 cm 04/21/2016 [facility] Weight 95.455 04/21/2016 [facility] BMI Calculated 31.08 04/21/2016 [facility] Encounters Location Location Details Encounter Type Encounter Number Reason For Visit Attending Provider ADM Date DC Date Status Source [facility] Outpatient [id number] Lazaro Wilner 06/26/2014 06/27/2014 [facility] Inpatient [id number] Hilario Barakat 04/21/2016 04/22/2016 [facility] Procedures Procedure Code Date Perfomer Comments Source Repair of inguinal hernia [id number] [facility] Repair of umbilical hernia [id number] [facility]
--- NOTE | 2018-10-31 17:57 | NUR ---
Per registration, patient stated he was supposed to be at [place] and left AMA. Patient did not sign AMA paperwork and MD notified.
== END 2018-10-31 17:59 | disposition short-term general hospital (02) ==
LOC: ER 17:42
DX: R06.02 Shortness of breath (principal)
CPT/HCPCS: 99281